=== PATIENT | female | born 1985 | race Caucasian/White ===

== ENCOUNTER → 2018-08-28 | Outpatient (CLI) | payer BC ==
[~2018-08-28] MED LIST: AMOXICILLIN500 M3 PO; CIPRODEX 0.3%-7.5 ML OT; IRON325 M1 PO; MOTRIN800 MG PO; PERCOCET 325 MG1 TA2 PO; PNV-SELECT1 TAB PO
== END | disposition home or self-care (01) ==
LOC: LAB 07:12
DX: R73.09 Other abnormal glucose (principal)